=== PATIENT | male | born 1990 | race African-American/Black ===

== ENCOUNTER 2020-06-09 02:52 | Emergency (ER) | payer MEDICAID ==
[~2020-06-09] VITALS: Ht 182.9 cm; Wt 95.0 kg
[2020-06-09] MEDS ORDERED: IBUPROFEN 600MG TABLET PO ONE (03:15)
[2020-06-09] MEDS ORDERED: BACITRACIN ZINC OINT UDPKT TOP ONE (03:30)
[2020-06-09 03:44] VITALS: BP 146/96
== END 2020-06-09 03:49 | disposition home or self-care (01) ==
LOC: ER 02:52
DX: S90.822A Blister (nonthermal), left foot, initial encounter (principal); S90.821A Blister (nonthermal), right foot, initial encounter; X58.XXXA Exposure to other specified factors, initial encounter; Y93.9 Activity, unspecified; Y92.9 Unspecified place or not applicable
CPT/HCPCS: 99283